=== PATIENT | male | born 1945 | race Caucasian/White ===

== ENCOUNTER 2019-10-03 12:44 | Inpatient (IN) | payer MEDICARE, OTHER ==
[~2019-10-03] VITALS: Ht 172.7 cm; Wt 62.6 kg
[2019-10-03] VITALS (13 sets, daily range): BP systolic 150–192; BP diastolic 54–98; BMI 22.0
--- NOTE | ~2019-10-03 | HEMODYNAMI ---
PATIENT:MINOO ORTIZ MEDICAL RECORD: [id number] : 49 LOCATION:[facility] ADMISSION DATE: 10/03/19 Generatedon:10/06/201916:23 Patient name: MINOO ORTIZ Patient #: [id number] SSN: D OB: 1945 Date of study: 10/06/2019 Page: Of Hemodynamic Procedure Report Patient Data Patient Demographics Procedure consent was obtained First Name: MINOO Gender: Male Last Name: ANGEL : 1945 Patient #: [id number] Age: 73 year(s) Race: Additional ID: [id number] Contact details Address: [address] [place] [address] State: [place] City: [place] Zip code: [address] Past Medical History Allergies: No known allergies Admission Admission Data Admission Date: 10/03/2019 Admission Time: 14:42 Arrival Date: 10/04/2019 Arrival Time: 0:00 Admit Source: Other Insurance Payor: Medicare Room #: D.CV02 [facility] #: [id number] Height (in.): 68 BSA: 1.75 (m2) Height (cm.): 172.72 BMI: 20.98 (kg/m2) Weight (lbs.): 137.99 Weight (kg.): 62.59 Lab Results Lab Result Date: 10/06/2019 Lab Result Time: 0:00 Biochemistry Name Units Result Min Max BUN mg/dl 24 --(----)-* 7 18 Creatinine mg/dl 1.7 --(----)-* 0.6 1.3 eGFR ml/min 42 *-(----)-- 90 120 NONAFRICAN CBC Name Units Result Min Max Hematocrit % 35 *-(----)-- 42 54 Hemoglobin g/dl 11.6 *-(----)-- 13.5 17.5 Procedure Procedure Types Cath Procedure Diagnostic Procedure LHC LHC w/Coronaries Sedation Charges Moderate Sedation up to 15 minutes Peripheral Cath Diagnostic Procedure Flight Controls Engineer Peripheral Procedures AFRO (Diagnostic) Four Vessel Arteriogram Procedure Description Procedure Date Procedure Date: 10/06/2019 Procedure Start Time: 15:57 Procedure End Time: 16:21 Procedure Staff Name Function Jeremias Ding MD Performing Physician Jami Meza RT Monitor Jae Garcia RN Nurse Rosy Ayala RT Scrub Procedure Data Cath Procedure Fluoroscopy Diagnostic fluoroscopy Total fluoroscopy Time: 4.9 time: 4.9 min min Diagnostic fluoroscopy Total fluoroscopy dose: 972 dose: 972 mGy mGy Contrast Material Contrast Material Type Amount (ml) Isovue 300 188 Entry Location Entry Primary Successful Side Size Upsize Upsize Entry Closure Succes sful Closure Location (Fr) 1 (Fr) 2 (Fr) Remarks Device Remarks Femoral Right 5 Fr Exoseal artery Estimated blood loss: 5 ml Diagnostic catheters Device Type Used For End Catheter Placement MULTIPACK JL 4.0 5Fr Left Coronary catheter Angiography MULTIPACK 3DRC 5Fr Procedure catheter MULTIPACK Pigtail 5 Fr LV Angiography catheter Procedure Complications No complications Procedure Medications Medication Administration Route Dosage 0.9% NaCl I.V. 100 ml/hr Oxygen etCO2 Nasal cannula 2 l/min Heparin Flush Bag added to field 2 bags (1000units/500ml NS) Lidocaine 2% added to field 20 Versed I.V. 0.5 mg Fentanyl I.V. 25 mcg Versed I.V. 0.5 mg Fentanyl I.V. 25 mcg Hemodynamics Rest BSA: 1.75 (m2) HGB: 11.6 (g/dl) O2 Consumption: Estimated: 203.42 (ml/min) O2 Co nsumption indexed: Estimated:116.24 (ml/min/m) Heart Rate: 72 (bpm) Snapshots Pre Cath Intra NCS Post Cath Vital Signs Time Heart Resp SPO2 etCO2 NIBP (mmHg) Rhythm Pain Sedation Rate (ipm) (%) (mmHg) Status Level (bpm) 15:47:31 73 15 95 0 159/79(123) NSR 0 (11) 10(A) , No pain 15:51:24 74 16 98 20.1 157/80(120) NSR 0 (11) 10(A) , No pain 15:55:44 75 15 98 20.9 160/84(120) NSR 0 (11) 10(A) , No pain 16:00:11 72 14 97 22.4 162/80(123) NSR 0 (11) 10(A) , No pain 16:04:37 74 14 97 19.4 151/74(114) NSR 0 (11) 9(A) , No pain 16:08:35 73 14 96 16.4 142/71(102) NSR 0 (11) 9(A) , No pain 16:13:05 72 16 99 23.8 151/74(118) NSR 0 (11) 10(A) , No pain Medications Time Medication Route Dose Verified Delivered Reason Notes Eff ectiveness by by 15:53:59 0.9% NaCl I.V. 100 Jae Jae Per ml/hr Jose Garcia physician RN RN 15:54:08 Oxygen etCO2 2 Jae Jae for low 02 Nasal l/min Lorigan Lorigan sats cannula RN RN 15:54:17 Heparin Flush added 2 Jae Jae used for Bag to bags Lorigan Lorigan procedure (1000units/500ml field RN RN NS) 15:54:26 Lidocaine 2% added 20ml Jae Jae for local to vial Lorigan Lorigan anesthetic field RN RN 15:55:23 Versed I.V. 0.5 Jae Jae for mg Lorigan Lorigan sedation RN RN 15:55:30 Fentanyl I.V. 25 Jae Jae for mcg Lorigan Lorigan sedation RN RN 15:59:01 Versed I.V. 0.5 Jae Jae for mg Lorigan Lorigan sedation RN RN 15:59:07 Fentanyl I.V. 25 Jae Jae for mcg Lorigan Lorigan sedation RN crating and moving estimator Log Time Note 15:29:41 Patient Height : 68 inches 15:29:41 Patient Weight : 137.99 lbs 15:30:32 Procedure Status Urgent Heart Cath (IP). 15:30:35 Jami BUNDY(R) (CV) sent for patient. Start room use. 15:30:36 Time tracking: Regular hours (M-F 7:00 - 5:00) 15:30:40 Plan of Care:Hemodynamics will remain stable., Cardiac rhythm will remain stable., Comfort level will be maintained., Respiratory function will remain adequate., Patient/ family verbilizes understanding of procedure., Procedure tolerated without complication., Recovers from procedure without complications.. 15:34:32 Patient allergic to No known allergies 15:38:53 Lab Result : BUN 24 mg/dl 15::53 Lab Result : Creatinine 1.7 mg/dl 15::53 Lab Result : eGFR NONAFRICAN 42 ml/min 15:38:53 Lab Result : Hematocrit 35 % 15:38:53 Lab Result : Hemoglobin 11.6 g/dl 15:42:00 Patient received from CVICU to CCL 2 Alert and oriented. Tansferred to table in Supine position. 15:42:02 Signed procedure consent form obtained from patient. 15:42:03 Warm blankets applied, and krishna hugger turned on for patient comfort. 15:42:04 Correct patient and procedure confirmed by team. 15:43:37 H&P Date Dictated: 10/04/2019 Within 30 days and on chart., ER History on chart.. 15:46:06 ECG and BP/O2 sat monitors applied to patient. 15:46:16 Vital chart was started 15:46:18 Baseline sample Acquired. 15:46:24 Rhythm: sinus rhythm , paced 15:46:25 Full Disclosure recording started 15:46:26 Pre-procedure instructions explained to patient. 15:46:26 Pre-op teaching completed and patient verbalized understanding. 15:46:29 Family in patients room. 15:46:30 Patient NPO since Midnight. 15:46:32 Is the patient allergic to Iodine/contrast media? No. 15:46:47 Is patient on blood thinner?No 15:46:55 Patient diabetic? No. 15:46:57 Previous problem with sedation/anesthesia? No ? 15:46:58 Snore? Yes 15:46:59 Sleep apnea? No 15:47:00 Deviated septum? No 15:47:01 Opens mouth fully? Yes 15:47:02 Sticks out tongue? Yes 15:47:04 Airway obstruction? No ? 15:47:10 Dentures? No ? 15:47:14 Pre procedure: right dorsailis pedis pulse Doppler 15:50:43 Patient pain scale 0/10 ?. 15:51:01 IV patent on arrival in left forearm with 0.9% NaCl at [facility]. 15:51:03 Lab results completed and on chart. 15:52:03 Bilateral groins area was prepped with chlora-prep and draped in sterile fashion 15:52:04 Alarms reviewed by R. N. 15:52:04 Sharps counted by scrub and verified by R.N. 15:52:18 Use device set Femoral Dx 15:52:19 ACIST Syringe (04762) opened to sterile field. 15:52:19 Bag Decanter (2002S) opened to sterile field. 15:52:21 ACIST Hand Control (29373) opened to sterile field. 15:52:21 ACIST Manifold (66330) opened to sterile field. 15:52:22 Tegaderm 4 x 4 (1626W) opened to sterile field. 15:52:23 Medline Cath Pack ([id number]) opened to sterile field. 15:52:24 DIAGNOSTIC Multipack 5Fr catheter set ([id number]) opened to sterile field. 15:52:25 SHEATH 5FR [place] (HIK458) opened to sterile field. 15:52:26 EMERALD Guide Wire (590-027) opened to sterile field. 15:53:59 0.9% NaCl 100 ml/hr I.V. was administered by Jae Garcia RN; Per physician; Verbal order read back and verified. 15:54:08 Oxygen 2 l/min etCO2 Nasal cannula was administered by Jae Garcia RN; for low 02 sats; Verbal order read back and verified. 15:54:17 Heparin Flush Bag (1000units/500ml NS) 2 bags added to field was administered by Jae Garcia RN; used for procedure; Verbal order read back and verified. 15:54:26 Lidocaine 2% 20ml vial added to field was administered by Jae Garcia RN; for local anesthetic; Verbal order read back and verified. 15:54:33 Physician arrived 15:54:34 --------ALL STOP TIME OUT------ 15:54:34 Final Timeout: patient, procedure, and site verified with staff and physician. All members of the team are in agreement. 15:54:38 Right groin site verified by team. 15:54:43 Fire Safety Assessment: A--An alcohol-based skin anteseptic being used preoperatively., C--Open oxygen or nitrous oxide is being used., D--An ESU, laser, or fiber-optic light is being used. 15:54:48 Physical assessment completed. ASA score P 2 - A patient with mild systemic disease as per Jeremias Ding MD. 15:54:54 3b) 30-44 Moderately reduced kidney function. 15:54:59 Maximum allowable contrast dose (3.7 X eGFR X 0.75)116 ml. 15:55:05 Sedation plan: IV Moderate Sedation Medication:Versed, Fentanyl 15:55:23 Versed 0.5 mg I.V. was administered by Jae Garcia RN; for sedation; Verbal order read back and verified. 15:55:30 Fentanyl 25 mcg I.V. was administered by Jae Garcia RN; for sedation; Verbal order read back and verified. 15:56:30 Procedure started. 15:57:30 Local anesthetic to right femoral artery with Lidocaine 2% by Jeremias Ding MD.INITIAL ACCESS ONLY 15:57:47 A 5 Fr sheath was inserted into the Right Femoral artery 15:57:56 A MULTIPACK JL 4.0 5Fr catheter was advanced over the wire and used for Left Coronary Angiography. 15:58:24 LCA angiography performed. 15:58:32 Injector settings: Ml/sec: 3, Volume: 6, 15:59:01 Versed 0.5 mg I.V. was administered by Jae Garcia RN; for sedation; Verbal order read back and verified. 15:59:07 Fentanyl 25 mcg I.V. was administered by Jae Garcia RN; for sedation; Verbal order read back and verified. 16:00:37 Catheter removed. 16:00:40 Zero performed for pressure channel P1 16:00:56 A MULTIPACK 3DRC 5Fr catheter was advanced over the wire and used for Procedure. 16:01:35 RCA angiography performed. 16:01:40 Injector settings: Ml/sec: 3, Volume: 6, 16:04:36 Right carotid angiography performed @3 for6. 16:05:52 Left carotid angiography performed @3for6. 16:06:42 Catheter removed. 16:07:43 A MULTIPACK Pigtail 5 Fr catheter was advanced over the wire and used for LV Angiography. 16:08:55 LV gram done using HUERTA 16:09:10 EF : 55 % 16:10:15 Left leg runoff performed@10 for 20. 16:11:31 Right leg runoff performed@10 for 20. 16:11:33 Right leg runoff performed@10 for 20. 16:12:31 Catheter removed. 16:12:35 EXOSEAL 5Fr (EX500) opened to sterile field. 16:14:43 Sheath removed intact; hemostasis achieved with Exoseal to the Right Femoral artery. 16:14:47 Procedure ended.(Physican Out) 16:15:30 Contrast amount:Isovue 300 188ml. 16:15:40 Fluoroscopy time 04.90 minutes. 16:15:46 Flurop Dose total: 972 16:15:46 Fluoroscopy dose: 972 mGy 16:15:58 Dose Area Product 56680 mGy/cm. 16:16:02 Maximum allowable dose exceeded? Yes. 16:16:04 Sharps counted by scrub and verified by R.N. 16:16:11 Post-procedure physical assessment completed. ASA score P 2 - A patient with mild systemic disease as per Jeremias Ding MD. 16:16:14 Post procedure rhythm: unchanged. 16:16:18 Estimated blood loss: 5 ml 16:16:20 Post procedure instruction explained to patient.Patient verbalizes understanding. 16:16:20 Patient needs reinforcement of post procedure teaching. 16:16:51 Vital chart was stopped 16:18:21 Procedure type changed to Cath procedure, Diagnostic procedure, LHC, LHC w/Coronaries, Sedation Charges, Moderate Sedation up to 15 minutes, Peripheral Cath Diagnostic Procedure, Flight Controls Engineer Peripheral Procedures, AFRO (Diagnostic), Four Vessel Arteriogram 16:18:24 Procedure and supply charges have been captured, reviewed, submitted and are correct. 16:20:03 Procedure Complication : No complications 16:20:09 [facility] Findings: mild to moderate CAD (<70%) 16:20:38 4Vessel Findings: surgery consult 16:20:53 AFRO Findings: PVD: MD will discuss options w/ pt 16:20:56 Operative report dictated upon procedure completion. 16:20:57 See physician's report for complete and final results. 16:21:00 Report given to CVICU. 16:21:05 Patient transfered to CVICU with Bed. 16:21:08 Procedure ended. 16:21:08 Full Disclosure recording stopped 16:21:15 End room use (Document Last) Device Usage Item Name Manufacture Quantity Catalog Hospital Part Current Minimal L ot# / Number Charge Number Stock Stock Serial# Code ACIST Acist 1 46566 953767 464204 683723 20 Syringe Medical (61327) Systems Inc Bag Microtek 1 2001S 811931 49736 695149 5 Decanter Medical Inc. () ACIST Hand Acist 1 28347 467375 952285 391731 5 Control Medical (65124) Systems Inc ACIST Acist 1 30796 753214 022055 828310 5 Manifold Medical (29082) Systems Inc Tegaderm 4 3M 1 1626W 314597 832224 635285 5 x 4 (1626W) Medline Medline 1 [id number] 246262 80034 656013 5 Cath Pack ([id number]) DIAGNOSTIC Cardinal 1 II8721 802633 67124 142632 30 Multipack Health 5Fr catheter set ([id number]) SHEATH 5FR Terumo 1 RQQ307 190334 233025 563500 5 [place] (EMT000) EMERALD Cardinal 1 784-678 670134 849621 232670 5 Guide Wire [facility] (502-683) MULTIPACK Cardinal 1 271354 5 JL 4.0 5Fr Health catheter MULTIPACK Cardinal 1 439785 5 3DRC 5Fr Health catheter MULTIPACK Cardinal 1 [id number] 5 Pigtail 5 Health Fr catheter EXOSEAL 5Fr Cardinal 1 EX500 963097 452513 266624 10 (EX500) Health Signature Audit [place] Stage Time Signature Unsigned Intra-Procedure 10/06/2019 Jami 4:21:42 PM Derrick RT(R) (CV) Intra-Procedure 10/06/2019 Jae 4:22:56 PM Jose MENDOZA Intra-Procedure 10/06/2019 Jeremias Bazan 4:23:24 PM Johnathon DYER Signatures Performing Physician : Signature : Jeremias Ding MD Date : Time : Monitor : Jami Signature : Derrick RT Date : Time : Nurse : Jae Lorigan Signature : RN Date : Time : [place] [address] [place] [address]
--- NOTE | ~2019-10-03 | HEMODYNAMI ---
PATIENT:MINOO ORTIZ MEDICAL RECORD: [id number] : 49 LOCATION:[facility] D.2301 ADMISSION DATE: 10/03/19 Generatedon:10/04/201917:00 Patient name: MINOO ORTIZ Patient #: [id number] SSN: D OB: 1945 Date of study: 10/04/2019 Page: Of Hemodynamic Procedure Report Patient Data Patient Demographics Procedure consent was obtained First Name: MINOO Gender: Male Last Name: ANGEL : 1945 Patient #: [id number] Age: 73 year(s) Race: Additional ID: [id number] Contact details Address: [address] [place] [address] State: [place] City: [place] Zip code: [address] Past Medical History Allergies: No known allergies Admission Admission Data Admission Date: 10/03/2019 Admission Time: 14:42 Arrival Date: 10/04/2019 Arrival Time: 0:00 Admit Source: Other Insurance Payor: Medicare Room #: D.2301 [facility] #: [id number] Height (in.): 68 BSA: 1.75 (m2) Height (cm.): 172.72 BMI: 20.98 (kg/m2) Weight (lbs.): 137.99 Weight (kg.): 62.59 Lab Results Lab Result Date: 10/04/2019 Lab Result Time: 0:00 Biochemistry Name Units Result Min Max BUN mg/dl 23 --(----)-* 7 18 CK-MB ng/ml 1.7 --(-*--)-- 0 3.6 Creatinine mg/dl 1.7 --(----)-* 0.6 1.3 eGFR ml/min 42 *-(----)-- 90 120 NONAFRICAN Troponin l ng/ml 0.077 --(----)-* 0 0.06 CBC Name Units Result Min Max Hematocrit % 32.3 *-(----)-- 42 54 Hemoglobin g/dl 10.4 *-(----)-- 13.5 17.5 Procedure Procedure Types Cath Procedure Diagnostic Procedure PPM/ICD PPM Dual Implant Sedation Charges Moderate Sedation up to 15 minutes Procedure Description Procedure Date Procedure Date: 10/04/2019 Procedure Start Time: 16:32 Procedure End Time: 16:55 Procedure Staff Name Function Jeremias Ding MD Performing Physician Panda Ramires MD Assisting physician Ary Fontanez RT Monitor Dixon De Oliveira RN Nurse Estevan Quezada RT Scrub Procedure Data Cath Procedure Fluoroscopy Diagnostic fluoroscopy Total fluoroscopy Time: 1.7 time: 1.7 min min Diagnostic fluoroscopy Total fluoroscopy dose: 37 dose: 37 mGy mGy Estimated blood loss: 10 ml Procedure Complications No complications Procedure Medications Medication Administration Route Dosage Oxygen etCO2 Nasal cannula 2 l/min Ancef (1Gm/50ml NS) I.V.P.B 1 g Ancef Irrigation Topical 1 g (1gm/500ml NS) Lidocaine 1% added to field 20 Versed I.V. 1 mg Fentanyl I.V. 50 mcg Versed I.V. 1 mg Fentanyl I.V. 50 mcg Hemodynamics Rest BSA: 1.75 (m2) HGB: 10.4 (g/dl) O2 Consumption: Estimated: 193.53 (ml/min) O2 Co nsumption indexed: Estimated:110.59 (ml/min/m) Heart Rate: 57 (bpm) Snapshots Pre Cath Intra NCS Post Cath Vital Signs Time Heart Resp SPO2 etCO2 NIBP (mmHg) Rhythm Pain Sedation Rate (ipm) (%) (mmHg) Status Level (bpm) 16:24:39 40 14 98 19.4 197/72(143) 3 0 (11) 10(A) degree , No Heart pain Block 16:29:17 40 20 97 14.9 178/81(136) 3 0 (11) 10(A) degree , No Heart pain Block 16:33:46 46 18 95 19.4 188/84(133) 3 0 (11) 10(A) degree , No Heart pain Block 16:39:09 38 15 94 17.2 184/77(129) 3 0 (11) 9(A) degree , No Heart pain Block 16:43:46 31 15 94 21.6 182/69(128) 3 0 (11) 9(A) degree , No Heart pain Block 16:48:10 68 13 96 21.6 172/83(128) Paced 0 (11) 9(A) , No pain 16:52:32 88 15 97 23.9 168/82(124) Paced 0 (11) 10(A) , No pain Medications Time Medication Route Dose Verified Delivered Reason Notes Effectiv eness by by 16:10:23 Oxygen etCO2 2 Jeremias Marinelliie used for Nasal l/min [facility] Johnathon De Oliveira RN procedure cannula 16:12:33 Ancef I.V.P.B 1 g Jeremias Marinelliie used for (1Gm/50ml St Johnathon De Oliveira RN procedure NS) 16:32:42 Ancef Topical 1 g Jeremias Morleyian used for Irrigation St Johnathon Ramires MD procedure (1gm/500ml NS) 16:32:56 Lidocaine added 20ml Jeremias Mosqueda for local 1% to vial St Johnathon Ramires MD anesthetic field x 2 16:33:05 Versed I.V. 1 mg Jeremias Metcalf for [facility] Johnathon De Oliveira RN sedation 16:33:12 Fentanyl I.V. 50 Jeremias Marinelliie for [facility] Johnathon De Oliveira RN sedation 16:39:43 Versed I.V. 1 mg Jeremias Marinelliie for [facility] Johnathon De Oliveira RN sedation 16:39:46 Fentanyl I.V. 50 Jeremias Marinelliie for [facility] Johnathon De Oliveira RN sedation Procedure Log Time Note 15:44:54 Informed consent obtained and on chart 15:52:40 Procedure Status PPM/ Gen Change/ Lead Revision/ Temp. 15:52:43 Esetvan Quezada RT(R) sent for patient. Start room use. 15:56:16 H&P Date Dictated: 10/03/2019 Within 30 days and on chart.. 15:56:17 Pre-procedure instructions explained to patient. 15:56:18 Pre-op teaching completed and patient verbalized understanding. 15:56:20 Family in waiting room. 15:56:22 Patient NPO since Midnight. 15:56:37 Patient allergic to No known allergies 15:56:43 Alarms reviewed by R. N. 15:56:43 Sharps counted by scrub and verified by R.N. 15:56:46 Patient pain scale 0/10 ?. 15:58:58 Lab Result : CK-MB 1.7 ng/ml 15:58:58 Lab Result : Creatinine 1.7 mg/dl 15::58 Lab Result : BUN 23 mg/dl 15:: Lab Result : Hemoglobin 10.4 g/dl :58 Lab Result : Hematocrit 32.3 % 15:58:58 Lab Result : Troponin l 0.077 ng/ml 15:58:58 Lab Result : eGFR NONAFRICAN 42 ml/min 15:59: Arrival Date: 10/04/2019 12:00:00 AM 15:59:02 Admit Source: Other 15:59:05 Insurance Payor : Medicare 15:59:30 Patient Height : 68 inches 15:59:35 Patient Weight : 137.99 lbs 16:01:11 Lab results completed and on chart. 16:01:16 Stress Test: no; N/A ? 16:01:24 Left chest area was prepped with chlora-prep and draped in sterile fashion 16:01:39 ACC Patient presents with Stable Angina CCS Anginal Class 2--Slight limitation of ordinary activity. 16:01:42 Time tracking: Regular hours (M-F 7:00 - 5:00) 16:01:49 Plan of Care:Hemodynamics will remain stable., Cardiac rhythm will remain stable., Comfort level will be maintained., Respiratory function will remain adequate., Patient/ family verbilizes understanding of procedure., Procedure tolerated without complication., Recovers from procedure without complications.. 16:04:11 Patient received from ICU to [facility] 1 Alert and oriented. Tansferred to table in Supine position. 16:04:13 Warm blankets applied, and krishna hugger turned on for patient comfort. 16:04:14 Correct patient and procedure confirmed by team. 16:04:15 ECG and BP/O2 sat monitors applied to patient. 16:04:21 Is the patient allergic to Iodine/contrast media? No. 16:04:23 Was the patient premedicated? N/A 16:10:23 Oxygen 2 l/min etCO2 Nasal cannula was administered by Dixon De Oliveira RN; used for procedure; Verbal order read back and verified. 16:12:33 Ancef (1Gm/50ml NS) 1 g I.V.P.B was administered by Dixon De Oliveira RN; used for procedure; Verbal order read back and verified. 16:20:53 Is patient on blood thinner?Yes 16:20:56 ACC The patient was administered the following blood thiners within the last 24 hours: ACCPlavix 16::59 Patient diabetic? No. 16:21:00 If diabetic: On Metformin? N/A 16:21:02 ----Pre-sedation anethsthesia assessment.---- 16:21:04 Previous problem with sedation/anesthesia? No ? 16:21:05 Snore? Yes 16:21:07 Sleep apnea? Unknown 16:21:08 Deviated septum? No 16:21:10 Opens mouth fully? Yes 16:21:11 Sticks out tongue? Yes 16:21:13 Airway obstruction? No ? 16:21:16 Dentures? Yes IN TIGHT 16:21:21 Pre procedure: right dorsailis pedis pulse 2+ Normal; easily identifiable; not easily obliterated 16:21:51 IV patent on arrival in left antecubital with 0.9% NaCl at [facility]. 16::59 Full Disclosure recording started 16::59 Vital chart was started 16:22:06 Rhythm: sinus bradycardia, 2nd degree heart block 16:22:09 Baseline sample Acquired. 16:23:55 Use device set TOI PPM 16:23:57 2-0 Ticron Multipack ([id number]) opened to sterile field. 16:23:58 3-0 Vicryl Single Pack [id number] opened to sterile field. 16:23:59 5-0 Monocryl PS2 [id number] opened to sterile field. 16:23:59 Cautery Tip Superintendent Terminal opened to sterile field. 16:24:00 Cautery Pushbutton Pencil opened to sterile field. 16:24:00 Mepilex Dressing (075715) opened to sterile field. 16:24:12 Immobilizer Large opened to sterile field. 16::09 --------ALL STOP TIME OUT------ 16:: Final Timeout: patient, procedure, and site verified with staff and physician. All members of the team are in agreement. 16:26:19 Left chest site verified by team. 16::23 Fire Safety Assessment: A--An alcohol-based skin anteseptic being used preoperatively., C--Open oxygen or nitrous oxide is being used., D--An ESU, laser, or fiber-optic light is being used. 16:26:29 Physical assessment completed. ASA score P 2 - A patient with mild systemic disease as per Jeremias Ding MD. 16:26:35 Sedation plan: IV Moderate Sedation Medication:Versed, Fentanyl 16:32:00 Procedure started. 16:32:19 Grounding pad site Left thigh. 16:32:21 Grounding pad site free from injury. 16:32:31 Medtronic tax compliance representative LESLY VELA present for procedure. 16:32:42 Ancef Irrigation (1gm/500ml NS) 1 g Topical was administered by Panda Ramires MD; used for procedure; Verbal order read back and verified. 16:32:42 Pre sharps counted by scrub and verified by RN: Sutures: 7; Sponges: 5; Stick needles: 2; Skin needles: 2; Blade: 1; Cautery: 1 16:32:48 Lidocaine 1% was administered to left subclavicular area by Panda Ramires MD . 16:32:56 Lidocaine 1% 20ml vial x 2 added to field was administered by Panda Ramires MD; for local anesthetic; Verbal order read back and verified. 16:33:05 Versed 1 mg I.V. was administered by Dixon De Oliveira RN; for sedation; Verbal order read back and verified. 16:33:12 Fentanyl 50 mcg I.V. was administered by Dixon De Oliveira RN; for sedation; Verbal order read back and verified. 16:33:36 Incision made to left subclavicular area. 16:35:23 Generator pocket made/opened. 16:35:30 Medtronic 4574-45 PPM Lead opened to sterile field. 16:35:30 Medtronic 4074-52 PPM Lead opened to sterile field. 16:35:41 Right subclavian vein accessed with 7Fr Peel Away Sheath. 16:35:44 Left subclavian vein accessed with 7Fr Peel Away Sheath. 16:36:37 Ventricular lead inserted and advanced. 16:36:40 Atrial lead inserted and advanced. 16:39:43 Versed 1 mg I.V. was administered by Dixon De Oliveira RN; for sedation; Verbal order read back and verified. 16:39:46 Fentanyl 50 mcg I.V. was administered by Buffie De Oliveira RN; for sedation; Verbal order read back and verified. 16:40:03 Ventricular lead positioned. 16:40:12 Ventricular lead tested. 16:40:52 Atrial lead positioned. 16:41:41 Atrial lead tested. 16:42:56 Peel-a-way sheath was split and removed. 16:43:03 Peel-a-way sheath was split and removed. 16:44:19 Ventricular lead attachment was completed with 2-0 ticron. 16:45:29 Atrial lead attachment was completed with 2-0 ticron. 16:45:59 MedAntidota MRI PPM Dual Generator [id number] opened to sterile field. 16:49:06 PPM Dual was attached to lead(s) and inserted into pocket. 16:49:29 Generator was sutured in place with 2-0 ticron. 16:49:35 Device pocket was irrigated with Ancef. 16:51:00 Subcutaneous closure was completed with 3-0 vicryl. 16:51:12 Skin closure was completed with 5-0 monocryl. 16:52:03 Lt Chest incision was dressed with 4 x 4 and Tegaderm. 16:52:10 Procedure ended.(Physican Out) 16:52:47 Fluoroscopy time 01.70 minutes. 16:52:52 Fluoroscopy dose: 37 mGy 16:52:52 Flurop Dose total: 37 16:53:00 Dose Area Product 3382 mGy/cm. 16:53:58 Sharps counted by scrub and verified by R.N. 16:54:34 Post-procedure physical assessment completed. ASA score P 2 - A patient with mild systemic disease as per Jeremias Ding MD. 16:54:39 Post procedure rhythm: sinus rhythm 16:54:41 Estimated blood loss: 10 ml 16:54:43 Post procedure instruction explained to patient.Patient verbalizes understanding. 16:54:43 Patient needs reinforcement of post procedure teaching. 16:55:13 Procedure type changed to Cath procedure, Diagnostic procedure, PPM/ICD, PPM Dual Implant, Sedation Charges, Moderate Sedation up to 15 minutes 16:55:30 Procedure and supply charges have been captured, reviewed, submitted and are correct. 16:55:35 Procedure Complication : No complications 16:55:38 Vital chart was stopped 16:55:41 Operative report dictated upon procedure completion. 16:55:42 See physician's report for complete and final results. 16:55:50 Report given to CVICU. 16:55:56 Patient transfered to CVICU with Bed. 16:55:59 Procedure ended. 16:55:59 Full Disclosure recording stopped 16:56:06 ACC-PCI Only Patient was given prescriptions, or instructed by Jeremias Ding MD to start/continue the following medications upon discharge: Plavix 16:59:25 End room use (Document Last) 16:59:44 End room use (Document Last) 16:59:58 End room use (Document Last) Device Usage Item Name Manufacture Quantity Catalog Hospital Part Current Minimal Lot# / Number Charge Number Stock Stock Serial# Code 2-0 Ticron Ethicon 6 [id number] 916746 51200 905824 5 Multipack ([id number]) 3-0 Vicryl Ethicon 1 [id number] 102033 302167 997731 5 Single Pack [id number] 5-0 Monocryl Ethicon 1 Y495G 904778 016637 405611 5 PS2 Y495G Cautery Tip Microtek 1 [id number] 984599 790730 058608 5 [employer] Cautery Microtek 1 [id number] 324136 07765 290208 5 Push[employer] Pencil Mepilex Cardinal 1 639193 063977 975937 519486 5 [facility] ([id number]) Immobilizer Cardinal 1 [id number] 919438 148154 061593 5 Large Health Medtronic Medtronic 1 4574-45 604217 938020 784739 5 4574-45 PPM [id number] Lead EXP: 09/16/2020 Medtronic Medtronic 1 4074-52 342606 020661 480990 5 4074-52 PPM [id number] Lead EXP: 12/25/2019 Medtronic Medtronic 1 [id number] 069940 036648 447530 5 Advisa MRI [id number] PPM Dual EXP: Generator 01/29/2021 [id number] Signature Audit [place] Stage Time Signature Unsigned Intra-Procedure 10/04/2019 Ary Fontanez 4:59:44 PM RT(R) Intra-Procedure 10/04/2019 Dixon De Oliveira RN 4:59:58 PM Intra-Procedure 10/04/2019 Jeremias Keller:00:33 PM Johnathon D[facility] [address] [place] [address]
[2019-10-03] MEDS ORDERED: PLAVIX75 MG PO (13:07)
[2019-10-03] MEDS ORDERED: NORVASC10 MG PO (13:07)
[2019-10-03] MEDS ORDERED: K-DUR20 MEQ PO (13:08)
[2019-10-03] MEDS ORDERED: HYDROCHLOROTHIA50 MG PO (13:08)
[2019-10-03] MEDS ORDERED: BAYER CHEWABLE81 MG PO (13:08)
[2019-10-03] MEDS ORDERED: PRAVACHOL40 MG PO (13:08)
[2019-10-03 13:51] LABS: BASOPHILS 0.4 % (0-2); EOSINOPHILS 0.6 % (0-7); HEMOGLOBIN 11.1 g/dL (13.5-17.5); IMMATURE GRANULOCYTES 0.3 % (0-5); LYMPHOCYTES 13.4 % (15-50); MCH 25.1 pg (26.0-34.0); MCHC 31.7 g/dL (31.0-37.0); MEAN PLATELET VOLUME 8.8 fL (7.4-10.4); MONOCYTES 8.5 % (2-11); NEUTROPHILS 76.8 % (40-80); PLATELET COUNT 348 10x3/uL (130-400); RBC 4.43 10x6/uL (4.20-6.10); RDW 19.4 % (11.5-14.5)
[2019-10-03 13:56] LABS: CALC OSMOLALITY 275 mosm/kg (275-300); CALCIUM 8.2 mg/dL (8.5-10.1); CARBON DIOXIDE 23.7 mmol/L (21.0-32.0); CHLORIDE - SERUM 102 mmol/L (98-107); CREATININE - SERUM 1.7 mg/dL (0.6-1.3); GLUCOSE 103 mg/dL (74-106); POTASSIUM - SERUM 4.2 mmol/L (3.5-5.1); SODIUM 136 mmol/L (136-145); UREA NITROGEN 23 mg/dL (7-18); eGFR NON AFRICAN AMERICAN 42 mL/min (90-120)
[2019-10-03 13:58] LABS: APTT 31.4 SECONDS (22.8-39.4); INR 1.02 (0.85-1.17); PROTIME 13.3 SECONDS (11.6-15.0)
[2019-10-03 14:10] LABS: ALBUMIN 2.4 g/dL (3.4-5.0); ALKALINE PHOSPHATASE 85 U/L (30-120); ALT (SGPT) 20 U/L (10-68); BILIRUBIN - TOTAL 0.45 mg/dL (0.2-1.3); CKMB 1.9 U/L (0.0-3.6); CREATINE KINASE 89 UL (21-232); MAGNESIUM - SERUM 2.2 mg/dL (1.8-2.4); TROPONIN-I 0.037 ng/mL (0.000-0.060)
--- NOTE | 2019-10-03 16:26 | NUR ---
JONATHAN HAMMOND APRN WITH CARIOLOGY NOTIFIED OF BP 192/54 AT THIS TIME. NEW ORDER RECEIVED FOR HYDRALIZINE 50 MG PO TID PRN SBP >170. VORB.
--- NOTE | 2019-10-03 17:19 | NUR ---
PT ARRIVED IN THE UNIT. PT HOOKED TO ICU MONITOS. PT NOTED TO BE IN A COMPLET HEART BLOCK RATE 38. BP STABLE. PT HAS NO COMPLAINTS/NEEDS AT THIS TIME. CALL LIGHT IN REACH. WILL CONT POC.
--- NOTE | 2019-10-03 19:30 | NUR ---
REPORT RECIEVED, SHIFT ASSESSMENT COMPLETE, PT IS ALERT AND ORIENTED, ON RA WITH 97% O2 SAT. ALL PPP, VSS, CALL LIGHT IN REACH
[2019-10-03 19:44] LABS: CKMB 1.6 U/L (0.0-3.6); CREATINE KINASE 69 UL (21-232); TROPONIN-I 0.048 ng/mL (0.000-0.060)
[2019-10-04] VITALS (23 sets, daily range): BP systolic 149–187; BP diastolic 45–88; Ht 172.7 cm; Wt 62.6 kg
[2019-10-04 02:14] LABS: BASOPHILS 0.4 % (0-2); EOSINOPHILS 1.6 % (0-7); HEMATOCRIT 32.3 % (42.0-54.0); HEMOGLOBIN 10.4 g/dL (13.5-17.5); IMMATURE GRANULOCYTES 0.3 % (0-5); LYMPHOCYTES 10.7 % (15-50); MCH 25.3 pg (26.0-34.0); MCHC 32.2 g/dL (31.0-37.0); MCV 78.6 fL (80.0-100.0); MEAN PLATELET VOLUME 8.7 fL (7.4-10.4); MONOCYTES 10.2 % (2-11); NEUTROPHILS 76.8 % (40-80); PLATELET COUNT 343 10x3/uL (130-400); RBC 4.11 10x6/uL (4.20-6.10); RDW 19.6 % (11.5-14.5); WBC 12.5 10x3/uL (4.8-10.8)
[2019-10-04 02:40] LABS: ALBUMIN 2.1 g/dL (3.4-5.0); ALKALINE PHOSPHATASE 76 U/L (30-120); ALT (SGPT) 16 U/L (10-68); BILIRUBIN - TOTAL 0.37 mg/dL (0.2-1.3); CALC OSMOLALITY 276 mosm/kg (275-300); CALCIUM 7.9 mg/dL (8.5-10.1); CARBON DIOXIDE 18.4 mmol/L (21.0-32.0); CHLORIDE - SERUM 103 mmol/L (98-107); CKMB 1.4 U/L (0.0-3.6); CREATINE KINASE 65 UL (21-232); CREATININE - SERUM 1.7 mg/dL (0.6-1.3); GLUCOSE 76 mg/dL (74-106); POTASSIUM - SERUM 3.6 mmol/L (3.5-5.1); PROTEIN - SERUM 5.5 g/dL (6.4-8.2); SODIUM 137 mmol/L (136-145); TROPONIN-I 0.058 ng/mL (0.000-0.060); UREA NITROGEN 23 mg/dL (7-18); eGFR NON AFRICAN AMERICAN 42 mL/min (90-120)
--- NOTE | 2019-10-04 07:00 | NUR ---
REPORT RECEVIED. SEE FLOW SHEET.
--- NOTE | 2019-10-04 08:28 | NUR ---
DR JACKSON AT THE PTS BEDSIDE GOING OVER THE PROCEDURE WITH THE PATIENT. PT CONSENTED TO PPM PLACEMENT. DR JACKSON OK FOR THE PATIENT TO EAT BREAKFAST. [employer] PROVIDED. PLAN FOR PPM AROUND [phone].
--- NOTE | 2019-10-04 08:32 | NUR ---
CONSENT FOR BLOOD, PPM AND ANESTESIA SIGNED AND PLACED IN THE CHART.
[2019-10-04 08:49] LABS: APTT 34.3 SECONDS (22.8-39.4); INR 0.99 (0.85-1.17); PROTIME 13.1 SECONDS (11.6-15.0)
[2019-10-04 09:16] LABS: CKMB 1.7 U/L (0.0-3.6); CREATINE KINASE 63 UL (21-232)
[2019-10-04 09:26] LABS: TROPONIN-I 0.077 ng/mL (0.000-0.060)
--- NOTE | 2019-10-04 14:00 | NUR ---
PT CLIPPED AND PREPPED FOR PPM PLACEMENT.
--- NOTE | 2019-10-04 16:01 | NUR ---
PT LEFT FOR PPM PLACEMENT. GOT THE TO WALK UP WITH THE PT.
--- NOTE | 2019-10-04 17:30 | NUR ---
PT BACK IN THE ROOM AND HOOKED TO ICU MONITORS. PACING AT 70. VSS. LEFT UPPER ARM IN A SLING. DRESSING NOTED TO LEFT UPPER CHEST. PT DENIES PAIN AT THIS TIME. CALL LIGHT IN REACH. WILLC ONT POC.
--- NOTE | 2019-10-04 19:31 | NUR ---
PT TRANSFERED TO [facility] WITH ALL BELONINGS.
--- NOTE | 2019-10-04 19:32 | NUR ---
PT RECEIVED TO UNIT AT 1930 VIA WHEELCHAIR WITH ICU NURSE. AMBULATED WITH STANDBY ASSIST TO BED. PLACED ON MONITOR. CALL LIGHT IN REACH. WATER GIVEN. WILL CONTINUE TO OBSERVE.
[2019-10-05] VITALS (24 sets, daily range): BP systolic 145–180; BP diastolic 54–81
[2019-10-05 04:35] LABS: HEMOGLOBIN 11.6 g/dL (13.5-17.5); MCH 25.9 pg (26.0-34.0); MCHC 33.1 g/dL (31.0-37.0); MCV 78.1 fL (80.0-100.0); MEAN PLATELET VOLUME 8.8 fL (7.4-10.4); RBC 4.48 10x6/uL (4.20-6.10); RDW 19.9 % (11.5-14.5); WBC 12.7 10x3/uL (4.8-10.8)
[2019-10-05 05:02] LABS: ANION GAP 17.4 mmol/L (8-16); CALCIUM 8.1 mg/dL (8.5-10.1); CARBON DIOXIDE 19.7 mmol/L (21.0-32.0); CREATININE - SERUM 1.7 mg/dL (0.6-1.3); POTASSIUM - SERUM 3.1 mmol/L (3.5-5.1)
[2019-10-05 05:03] LABS: APTT 34.3 SECONDS (22.8-39.4); INR 1.05 (0.85-1.17); PROTIME 13.6 SECONDS (11.6-15.0)
--- NOTE | 2019-10-05 08:04 | NUR ---
AWAKE AND ALERT SKIN WARM AND DRY. DENIES PAIN. LEFT ARM IN SLING, DRESSING LEFT SHOULDER DRY AND INTACT. VOIDED 225ML CLEAR RICHIE URINE. HEAD OF BED ELEVATED. RIGHT HAND IV SALINE LOCK WITHOUT REDNESS OR SWELLING. MONITOR PACER RHTHYM . NO DISTRESS. CALLED UPDATE GIVEN. PATIENT ON ROOM AIR. NURSE CALL LIGHT WITHIN HANDS REACH.
--- NOTE | 2019-10-05 10:03 | NUR ---
Nutrition Follow-up: POD 1 PPM placement. Reports fair appetite. Diet: Cardiac Wt: 138# (10/03) Last BM: 10/01 or 10/02 Labs noted: Ca 8.1, K+ 3.1 Meds noted: KDur, NS @ 75, electrolyte protocol -Encourage PO intake and honor food preferences within diet restrictions. -Monitor wt. -RD following.
--- NOTE | 2019-10-05 11:15 | NUR ---
APRRESOLINE GIVEN BLOOD PRESSURE 171/72
--- NOTE | 2019-10-05 14:32 | NUR ---
hibclens bath given up in chair at bedside. tolerated well. fair gait. left arm in sling. ns infusing right hand at 75 ml hour no redness or swelling at site. voided 175 ml of clear bradley urine. at bedside.
--- NOTE | 2019-10-05 17:48 | NUR ---
AMBULATE TO BED. TOLERATED WELL. DENIES PAIN. NO DISTRESS. LEFT SHOULDER DRESSING DRY AND INTACT. IV PATENT RIGHT HAND.
--- NOTE | 2019-10-05 17:50 | NUR ---
CONSENTS FOR HEART CATH AND BLOOD CONSENT SIGNED AND PLACED ON CHART.
[2019-10-05 18:18] LABS: CHOL - HDL RATIO 3.4 ratio (2.3-4.9); LDL-HDL RATIO 2.1 ratio (1.5-3.5)
--- NOTE | 2019-10-05 18:45 | NUR ---
APRESOLINE GIVEN FOR BLOOD PRESSURE 187/90
[2019-10-06] VITALS (24 sets, daily range): BP systolic 138–180; BP diastolic 48–79
--- NOTE | 2019-10-06 00:45 | NUR ---
SYSTOLIC B/P >170 PRN HYDRALAZINE GIVEN PER APR.
[2019-10-06 04:08] LABS: BASOPHILS 0.2 % (0-2); EOSINOPHILS 0.9 % (0-7); HEMATOCRIT 32.7 % (42.0-54.0); HEMOGLOBIN 10.5 g/dL (13.5-17.5); IMMATURE GRANULOCYTES 0.4 % (0-5); LYMPHOCYTES 7.1 % (15-50); MCH 25.3 pg (26.0-34.0); MCHC 32.1 g/dL (31.0-37.0); MCV 78.8 fL (80.0-100.0); MEAN PLATELET VOLUME 8.5 fL (7.4-10.4); MONOCYTES 9.9 % (2-11); NEUTROPHILS 81.5 % (40-80); PLATELET COUNT 349 10x3/uL (130-400); RBC 4.15 10x6/uL (4.20-6.10); RDW 20.1 % (11.5-14.5); WBC 12.5 10x3/uL (4.8-10.8)
[2019-10-06 04:42] LABS: ANION GAP 17.1 mmol/L (8-16); CREATININE - SERUM 1.6 mg/dL (0.6-1.3); POTASSIUM - SERUM 4.1 mmol/L (3.5-5.1); TROPONIN-I 1.649 ng/mL (0.000-0.060)
--- NOTE | 2019-10-06 07:00 | NUR ---
am meds given for blood pressure. patient awake and alert skin warm and dry, denies pain. left should pacermaker dressing dry and intactiv righthand without redness or swelling infusing with ns at 75 ml hour. voided in urinal 125 ml of clear yellow urine. head of bed elevated 30 degrees. pedal pulses double chected with doppler and marked.
--- NOTE | 2019-10-06 09:50 | NUR ---
here update given
--- NOTE | 2019-10-06 10:12 | NUR ---
apresoline given for bp 161/64
--- NOTE | 2019-10-06 15:00 | NUR ---
PATIENT WANTING TO LEAVE. STATES HE IS NEEDING A CIGARETTE. ATIVAN 0.5MG IV GIVEN
--- NOTE | 2019-10-06 15:23 | NUR ---
PREOP GIVEN FOR BURIAL VAULT DELIVERER AND INSTALLER
--- NOTE | 2019-10-06 16:36 | NUR ---
RETURNED TO ROOM FROM EQUIPMENT MECHANIC SPECIALIST. RIGHT GROIN DRESSING DRY AND INTACT NO BRUISING OR SWELLING NOTED. PEDLA PULSES PALABLE. PATIENT AWAKES EASILY SKIN WARM AND DRY . DENIES PAIN. MONITOR PACER RHYTHM. AT BEDSIDE. DR. NIETO TALKED WITH .
[2019-10-06] MEDS ORDERED: HYDRALAZINE HCL25 MG PO (16:40)
[2019-10-06] MEDS ORDERED: TOPROL XL50 MG PO (16:40)
--- NOTE | 2019-10-06 17:00 | NUR ---
NO CHANGES. RIGHT GROIN DRESSING DRY AND INTACT. PEDAL PULSES PALABLE. STILL SLEEPY. BED FLAT. DR HO CALLED. STATES CAN DISCHARGE IN 2 HOURS PER POST CATH PROTOCAL. MEDS CALLED INTO [facility]. APPOINTMENT MADE FOR September AT 1030 AM NOTIFIED OF NEW ORDERS AND MD APPOINTMENT.
--- NOTE | 2019-10-06 18:06 | NUR ---
PO MEDS TAKEN BY PATIENT WITHOUT DIFFICULTY. RIGHT GROIN DRESSING DRY AND INTACT NO SWELLING NOTED. NO BRUISING. PEDAL PULSES PALABLE.
--- NOTE | 2019-10-06 18:41 | MORECARE ---
CASE MANAGEMENT DISCHARGE SUMMARY PATIENT: MINOO ORTIZ UNIT: [id number] ADM DATE: 10/03/19 AGE: 73 : [birth year] SEX: M [facility] AUTHOR: ROBI KNUTSON PHYSICIAN: REFERRING PHYSICIAN: NAHOMI HO MD DATE OF SERVICE: 10/06/19 Discharge Plan Patient Name: MINOO ORTIZ [facility] [facility] 1945 Planned Disposition: Home Anticipated Discharge Date: Discharge Date: Expected LOS: Initial Reviewer: [email or web address] Initial Review Date: 10/03/2019 Generated: 10/06/19 7:41 pm DCPIA - Discharge Planning Initial Assessment Updated by [email or web address]: Eboni Renee on 10/06/19 6:40 pm * Is the patient Alert and Oriented? Yes * How many steps to enter\exit or inside your home? * PCP [place] * [facility] * Preadmission Environment Home with Family * ADLs Independent * Equipment None * List name and contact numbers for known caregivers / representatives who currently or will assist patient after discharge: CAITLIN ORTIZ - [facility] - [phone] * Verbal permission to speak to the caregivers and representatives has been obtained from the patient. No * Community resources currently utilized None * Additional services required to return to the preadmission environment? No * Can the patient safely return to the preadmission environment? Yes * Has this patient been hospitalized within the prior 30 days at any hospital? No Patient Name: MINOO ORTIZ Page [id number] at 1841 All edits/amendments must be made on the electronic document DICTATION DATE: 10/06/191840 SENIOR HARDWARE DESIGN ENGINEER: KELSEY 10/06/191840 RPT#: [id number] DC DATE: STATUS: ADM IN [facility] [address] [place] [address] END OF REPORT
--- NOTE | 2019-10-06 18:45 | NUR ---
DISCHARGE INSTRUCTIONS DISCUSS WITH PATEINT AND , COPY OF DISCHARGE INSTRUCTIONS PROVIDED. PATIENT ABLE TO REPEAT DISCHARGE INTRUCTIONS BACK TO NURSE.
--- NOTE | 2019-10-06 18:49 | MORECARE ---
CASE MANAGEMENT DISCHARGE SUMMARY PATIENT: MINOO ORTIZ UNIT: [id number] ADM DATE: 10/03/19 AGE: 73 : 47 SEX: M ROOM/BED: D[facility] AUTHOR: EAMON,DOC PHYSICIAN: REFERRING PHYSICIAN: NAHOMI HO MD DATE OF SERVICE: 10/06/19 Discharge Plan Patient Name: MINOO ORTIZ Facility: [facility]:[place] : 1945 Planned Disposition: Home Anticipated Discharge Date: Discharge Date: Expected LOS: Initial Reviewer: [email or web address] Initial Review Date: 10/03/2019 Generated: 10/06/19 7:48 pm Comments DCP- Discharge Planning Updated by [email or web address]: Eboni Renee on 10/06/19 5:[address] Patient Name: MINOO ORTIZ Admission Status: ER Accout number: [id number] Admission Date: 10-03-2019 : 1945 Admission Diagnosis:BRADYCARDIA, UNSPECIFIED Attending: NAHOMI HO Current LOS: 3 Anticipated DC Date: Planned Disposition: Home Primary Insurance: MEDICARE A & B Discharge Planning Comments: CM met with patient to complete initial dc planning assessment. CM educated patient on the CM role and verbal consent given by patient to complete assessment. Patient lives at home with family. Patient is independent. At discharge patient plans to return home and feels this is a safe discharge. CM discussed availability of home health, rehab services, and medical equipment. Patient will have family to transport home. Patient denied known discharge needs at this time. CM will continue to follow and will assist as needed with dc plans/needs. D/C IMM SIGNED Catering Truck Operator: Eboni Renee DCPIA - Discharge Planning Initial Assessment Updated by [email or web address]: Eboni Renee on 10/06/19 6:40 pm * Is the patient Alert and Oriented? Yes * How many steps to enter\exit or inside your home? * PCP [place] * Pharmacy [facility] * Preadmission Environment Home with Family * ADLs Independent * Equipment None * List name and contact numbers for known caregivers / representatives who currently or will assist patient after discharge: CAITLIN ORTIZ - [facility] - [phone] * Verbal permission to speak to the caregivers and representatives has been obtained from the patient. No * Community resources currently utilized None * Additional services required to return to the preadmission environment? No * Can the patient safely return to the preadmission environment? Yes * Has this patient been hospitalized within the prior 30 days at any hospital? No Coverage Notice Reviewer: [email or web address] Milana Renee Notice Issued Date-Time: 10/06/2019 17:30 Notice Type: IM Discharge Notice Notice Delivered To: Family Member Relationship to Patient: Spouse Fish Hatchery Superintendent Name: CAITLIN ORTIZ Delivery Method: HAND - Hand Delivered Caitlin Days: Prior Verbal Notification: Recipient Understood Notice: Yes Recipient Signature: Yes Med Rec Note Co-signed by Attending: Coverage Notice Comment: Last DP export: 10/06/19 5:41 p Patient Name: MINOO ORTIZ Page [id number] at 1849 All edits/amendments must be made on the electronic document DICTATION DATE: 10/06/191847 LEAD PORTFOLIO MANAGER: KELSEY 10/06/191847 RPT#: [id number] DC DATE: STATUS: ADM IN [facility] [address] [place] [address] END OF REPORT
--- NOTE | 2019-10-06 19:16 | NUR ---
PATIENT DISCHARGED PER WHEEL CHAIR
--- NOTE | 2019-10-07 08:19 | EC ---
PATIENT:MINOO ORTIZ DATE OF SERVICE: 10/03/19 SEX: M MEDICAL RECORD: [id number] DATE OF : [birth year] LOCATION:[place] [address] AGE OF PATIENT: 73 ADMISSION DATE: 10/03/19 REFERRING PHYSICIAN: INTERPRETING PHYSICIAN: JAYA JACKSON MD ECHOCARDIOGRAM REPORT ECHO CHARGES 4 ECHO COMPLETE Date: 10/04/19 CLINICAL DIAGNOSIS: HEART BLOCK ECHOCARDIOGRAPHIC MEASUREMENTS (adult normal given) AC root (d.<3.7cm) 2.8 cm LV Septum d (<1.2 cm> 0.9 cm Valve Excursion 1.7 cm LV Septum (systole) 1.8 cm Left Atria (s.<4.0cm> 4.0 cm LVPW d(<1.2cm) 0.7 cm RV (d.<2.3cm) 2.8 cm LVPW (sytole) 1.1 cm LV diastole(<5.6CM) 6.5 cm MV E-F(>70mm/sec) cm LV systole 4.2 cm LVOT Diameter 1.8 cm MV exc.(>10mm) cm Est.ejection fraction (50-75%) % DOPPLER: LVIT cm/sec A 134 cm/sec E 114 cm/sec LA cm/sec RVSP 31.8 mmHg LVOT 221 cm/sec AOP1/2T m/s Asc. Ao 260 cm/sec RVOT 108 cm/sec RA cm/sec PA 121 cm/sec AV Gradient Peak 26.9 mmHg AV Mean 11.7 mmHg AV Area 2.8 cm MV Gradient Peak 13.0 mmHg MV Mean 5.1 mmHg MV Area cm COMMENTS: Engraver Pantograph: Jocelyn CRUZ Senior Project Accountant: 3 Dr. Rand TAPE# PACS Pericardial Effusion N DATE OF SERVICE: Adequate 2D, color flow imaging, spectral Doppler, and M-Mode. No LVH. LV internal dimension is normal. Wall motion is normal. EF is greater than or equal to 55%. Aortic valve is mild calcification with elevated gradient consistent with mild/early . Left atrium is normal at 4.0 cm. Mitral valve shows no prolapse. Trace MR. Right-sided chambers are grossly normal. Trace TR. ECHOCARDIOGRAM REPORT [id number] MINOO ORTIZ TRANSINT:[id number] Voice Confirmation ID: [id number] DOCUMENT ID: [id number] JAYA JACKSON MD at 0819 CC: [id number] DICTATION DATE: 10/04/19 1439 MANAGER LIFE SCIENCES: 10/04/19 2250 DIS IN 10/06/19 [facility] [address] [place] [id number]
--- NOTE | 2019-10-07 08:19 | OP ---
PATIENT NAME: LUIS CARLOS CLANCY MEDICAL RECORD: [id number] :[birth year] LOCATION:[facility] BautistaCV02 ADMISSION DATE:10/03/19 SURGEON: JAYA JACKSON MD DATE OF OPERATION: 10/04/2019 PROCEDURE: Lead portion of permanent pacemaker placement. INDICATION: Complete heart block with sick sinus syndrome. SURGEON: Dr. Ramires. DESCRIPTION OF PROCEDURE: After left subclavian was cannulated via modified Seldinger technique via Dr. Ramires, first under fluoroscopic guidance, the RV lead was placed in the RV apex without difficulty. After adequate R waves and thresholds were obtained, placed the right atrial lead into the right atrial appendage without difficulty. After adequate P waves and thresholds were obtained, the leads were attached to appropriate poles of the generator and pocket was closed via Dr. Ramires. IMPRESSION: Successful lead portion of permanent pacemaker placement of Luis Carlos Clancy. ESTIMATED BLOOD LOSS: Minimal. COMPLICATIONS: None. DISPOSITION: To the floor, stable. TRANSINT:[id number] Voice Confirmation ID: [id number] DOCUMENT ID: [id number] JAYA JACKSON MD at 0819 CC: [id number] DICTATION DATE: 10/04/19 165 TRACER BULLET SECTION SUPERVISOR: 10/05/19 0058 DIS IN 10/06/19 [place] [id number] [place] [address]
--- NOTE | 2019-10-07 08:19 | OP ---
PATIENT NAME: MINOO ORTIZ MEDICAL RECORD: [id number] :47 LOCATION:DSIMONE DShaistaCV02 ADMISSION DATE:10/03/19 SURGEON: JAYA JACKSON MD DATE OF OPERATION: 10/06/2019 PROCEDURE: This is a left heart cath plus 4-vessel arteriography plus aortofemoral runoff. FOUR-VESSEL ARTERIOGRAPHY: Four-vessel arteriography procedure was performed secondary to dizziness and significant disease via carotid Doppler. The right common carotid was selectively engaged and this shows mild wall disease without significant stenosis. The right external carotid shows about 50% stenosis. The right internal carotid does show a 60% to 70% stenosis in its mid portion fairly discrete. Next, the catheter was drawn in the left common carotid was selectively engaged. It shows luminal irregularities. No flow obstructive disease. The left external carotid smooth-walled without significant stenosis. The left internal carotid does show a stenosis approaching 70-80% fairly discrete in its mid portion. PROCEDURE: Left heart cath, selective coronary angiography. Left ventriculography in 30-degree HUERTA view: Normal wall motion and normal systolic function. CORONARY ANATOMY: LEFT MAIN: Free of disease. LAD: Has mild wall disease with no significant stenosis. CIRCUMFLEX: Free of disease. RIGHT CORONARY ARTERY: Right coronary free of disease. The catheter was pulled to the level of the renal arteries and abdominal aorta, femoral runoff was performed. 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 This is somewhat elongated saccular. RIGHT ILIAC SYSTEM. The right common internal and external iliac is free of disease. Right femoral system, right superficial femoral system is totally occluded; however, it does reconstitute nicely distally via collaterals with preserved 3-vessel runoff. Left iliac common internal and external shows similar luminal irregularities with no flow obstructive disease. Left superficial femoral artery shows a diffuse stenosis in the 50% range, but nothing flow restrictive. However, there is severe diffuse disease. Infrapopliteal not amenable to intervention. IMPRESSION: Significant for peripheral vascular disease as described above. However, the right has excellent recollateralization. For medical management of the left only. TRANSINT:[id number] Voice Confirmation ID: [id number] DOCUMENT ID: [id number] OPERATIVE REPORT [id number] MINOO ORTIZ JAYA JACKSON MD at 6849 CC: [id number] DICTATION DATE: 10/06/19 1653 PLATE WORKER: 10/06/192206 DIS IN 10/06/19 [place] [address] [place] [id number]
--- NOTE | 2019-10-07 13:43 | MORECARE ---
CASE MANAGEMENT DISCHARGE SUMMARY PATIENT: MINOO ORTIZ UNIT: [id number] ADM DATE: 10/03/19 AGE: 73 : [birth year] SEX: M ROOM/BED: [facility] AUTHOR: EAMONDOC PHYSICIAN: REFERRING PHYSICIAN: NAHOMI HO MD DATE OF SERVICE: 10/07/19 Discharge Plan Patient Name: MINOO ORTIZ Facility: [facility]:[place] : 1945 Planned Disposition: Home Anticipated Discharge Date: Discharge Date: 10/06/2019 Expected LOS: Initial Reviewer: [email or web address] Initial Review Date: 10/03/2019 Generated: 10/07/19 2:43 pm Comments DCP- Discharge Planning Updated by [email or web address]: Eboni Renee on 10/06/19 5:[address] Patient Name: MINOO ORTIZ Admission Status: ER Accout number: [id number] Admission Date: 10-03-2019 : 1945 Admission Diagnosis:BRADYCARDIA, UNSPECIFIED Attending: NAHOMI HO Current LOS: 3 Anticipated DC Date: Planned Disposition: Home Primary Insurance: MEDICARE A & B Discharge Planning Comments: CM met with patient to complete initial dc planning assessment. CM educated patient on the CM role and verbal consent given by patient to complete assessment. Patient lives at home with family. Patient is independent. At discharge patient plans to return home and feels this is a safe discharge. CM discussed availability of home health, rehab services, and medical equipment. Patient will have family to transport home. Patient denied known discharge needs at this time. CM will continue to follow and will assist as needed with dc plans/needs. D/C IMM SIGNED First Front Ventilator: Eboni Renee DCPIA - Discharge Planning Initial Assessment Updated by [email or web address]: Eboni Renee on 10/06/19 6:40 pm * Is the patient Alert and Oriented? Yes * How many steps to enter\exit or inside your home? * PCP [place] * Pharmacy [facility] * Preadmission Environment Home with Family * ADLs Independent * Equipment None * List name and contact numbers for known caregivers / representatives who currently or will assist patient after discharge: CAITLIN ORTIZ - SPOUSE - [phone] * Verbal permission to speak to the caregivers and representatives has been obtained from the patient. No * Community resources currently utilized None * Additional services required to return to the preadmission environment? No * Can the patient safely return to the preadmission environment? Yes * Has this patient been hospitalized within the prior 30 days at any hospital? No Coverage Notice Reviewer: [id number] Milana Renee Notice Issued Date-Time: 10/06/2019 17:30 Notice Type: IM Discharge Notice Notice Delivered To: Family Member Relationship to Patient: Spouse Mortgage Lender Name: CAITLIN ORTIZ Delivery Method: HAND - Hand Delivered Caitlin Days: Prior Verbal Notification: Recipient Understood Notice: Yes Recipient Signature: Yes Med Rec Note Co-signed by Attending: Coverage Notice Comment: Last DP export: 10/06/19 5:49 p Patient Name: MINOO ORTIZ Page [phone] at 1343 All edits/amendments must be made on the electronic document DICTATION DATE: 10/07/19 1343 PHARMACY RETAIL SUPPORT SPECIALIST: KELSEY 10/07/19 1343 RPT#: [id number] DC DATE:10/06/19 STATUS: DIS IN [facility] [address] [place] [address] END OF REPORT
--- NOTE | 2019-10-13 13:22 | OP ---
PATIENT NAME: MINOO ORTIZ MEDICAL RECORD: [id number] :[birth year] LOCATION:DSTUARTI D.CV02 ADMISSION DATE:10/03/19 SURGEON: PANDA CM MD DATE OF OPERATION: 10/04/2019 PREOPERATIVE DIAGNOSIS: Sick sinus syndrome with complete heart block. POSTOPERATIVE DIAGNOSIS: Sick sinus syndrome with complete heart block. PROCEDURES: 1. Left subclavian vein dual-lead pacemaker placement. 2. Fluoroscopic interpretation. SURGEON: Panda Cm MD CO-SURGEON: Jeremias Rand MD REPORT OF OPERATION: The patient's left chest was prepped and draped in sterile fashion. A transverse incision was made over the left superolateral chest and a subcutaneous pouch was made over the pectoral fascia. A needle was used to cannulate the left subclavian vein and guidewires were advanced with ease. Fluoro was used to note that the wires were in good position in the venous system. The dilator, trocar devices were placed over the wires and the wires and dilators were removed. The leads were advanced until they rested in the superior vena cava. At this point, Dr. Rand positioned the leads appropriately in the atrium and ventricle. Once they were noted to be in good position and functioning appropriately, then they were sutured into place with 2-0 Ti-Crons. The leads were affixed to the pacemaker which was placed into the subcutaneous pouch and sutured to the pectoral fascia with a single interrupted 2-0 Ti-Cron. We irrigated out the wound bed with antibiotic solution. The subcutaneous tissues were reapproximated with interrupted 3-0 Vicryl and the skin was closed with running subcutaneous 5-0 Monocryl. COMPLICATIONS: None. CONDITION: Stable. ANESTHESIA: Local MAC. BLOOD LOSS: Minimal. NTS:[id number] Voice Confirmation ID: [id number] DOCUMENT ID: [id number] PANDA CM MD at 1322 CC: [id number] DICTATION DATE: 10/04/19 1654 PRIMARY CARE PROVIDER: 10/05/19 0106 DIS IN 10/06/19 [place] [address]
== END 2019-10-06 19:17 | disposition home or self-care (01) | DRG 242 ==
LOC: D.ER 12:44 → D.ICU 14:42 → D.CVICU 14:42
PROVIDERS: Family Medicine; Internal Medicine Interventional Cardiology; ADMIT Family Medicine; ATTEND Family Medicine
PROC: 0JH606Z Insertion of Pacemaker, Dual Chamber into Chest Subcutaneous Tissue and Fascia, Open Approach (ICD-10-PCS; principal; 2019-10-03)
PROC: 02HK3JZ Insertion of Pacemaker Lead into Right Ventricle, Percutaneous Approach (ICD-10-PCS; 2019-10-03)
PROC: 02H63JZ Insertion of Pacemaker Lead into Right Atrium, Percutaneous Approach (ICD-10-PCS; 2019-10-03)
PROC: 4A023N7 Measurement of Cardiac Sampling and Pressure, Left Heart, Percutaneous Approach (ICD-10-PCS; 2019-10-06)
PROC: B2111ZZ Fluoroscopy of Multiple Coronary Arteries using Low Osmolar Contrast (ICD-10-PCS; 2019-10-06)
PROC: B41D1ZZ Fluoroscopy of Aorta and Bilateral Lower Extremity Arteries using Low Osmolar Contrast (ICD-10-PCS; 2019-10-06)
PROC: B3151ZZ Fluoroscopy of Bilateral Common Carotid Arteries using Low Osmolar Contrast (ICD-10-PCS; 2019-10-06)
DX: I44.2 Atrioventricular block, complete (principal); I50.33 Acute on chronic diastolic (congestive) heart failure; I11.0 Hypertensive heart disease with heart failure; E78.5 Hyperlipidemia, unspecified; I25.10 Atherosclerotic heart disease of native coronary artery without angina pectoris; I49.5 Sick sinus syndrome; F17.200 Nicotine dependence, unspecified, uncomplicated; I65.23 Occlusion and stenosis of bilateral carotid arteries; I71.4 Abdominal aortic aneurysm, without rupture; R42 Dizziness and giddiness

== ENCOUNTER 2019-11-15 06:03 | Inpatient (IN) | payer MEDICARE, OTHER ==
[~2019-11-15] VITALS: Ht 172.7 cm; Wt 57.4 kg
[~2019-11-15 06:03] MED LIST: BAYER CHEWABLE81 MG PO; HYDRALAZINE HCL25 MG PO; HYDROCHLOROTHIA50 MG PO; K-DUR20 MEQ PO; NORVASC10 MG PO; PLAVIX75 MG PO; PRAVACHOL40 MG PO; TOPROL XL50 MG PO
[2019-11-15 06:38] LABS: BASOPHILS 0.3 % (0-2); EOSINOPHILS 1.8 % (0-7); HEMATOCRIT 36.7 % (42.0-54.0); HEMOGLOBIN 11.5 g/dL (13.5-17.5); IMMATURE GRANULOCYTES 0.3 % (0-5); LYMPHOCYTES 12.1 % (15-50); MCH 26.3 pg (26.0-34.0); MCHC 31.3 g/dL (31.0-37.0); MCV 83.8 fL (80.0-100.0); MONOCYTES 8.7 % (2-11); NEUTROPHILS 76.8 % (40-80); RBC 4.38 10x6/uL (4.20-6.10); RDW 19.9 % (11.5-14.5); WBC 14.4 10x3/uL (4.8-10.8)
[2019-11-15 06:42] LABS: CALC OSMOLALITY 273 mosm/kg (275-300); CALCIUM 8.9 mg/dL (8.5-10.1); CARBON DIOXIDE 24.2 mmol/L (21.0-32.0); CHLORIDE - SERUM 101 mmol/L (98-107); CREATININE - SERUM 1.2 mg/dL (0.6-1.3); POTASSIUM - SERUM 3.3 mmol/L (3.5-5.1); SODIUM 135 mmol/L (136-145); UREA NITROGEN 16 mg/dL (7-18); eGFR NON AFRICAN AMERICAN 63 mL/min (90-120)
[2019-11-15 06:43] LABS: GLUCOSE 145 mg/dL (74-106)
[2019-11-15 06:48] LABS: PLATELET COUNT 449 10x3/uL (130-400)
[2019-11-15 06:49] LABS: INR 0.94 (0.85-1.17); PROTIME 12.5 SECONDS (11.6-15.0)
[2019-11-15 06:50] LABS: APTT 33.2 SECONDS (22.8-39.4)
[2019-11-15 07:02] LABS: ALKALINE PHOSPHATASE 80 U/L (30-120); ALT (SGPT) 17 U/L (10-68); BILIRUBIN - TOTAL 0.36 mg/dL (0.2-1.3); CKMB 3.7 U/L (0.0-3.6); CREATINE KINASE 79 UL (21-232); PRO BNP 8175 pg/mL (0-125)
[2019-11-15 07:16] LABS: TROPONIN-I 0.801 ng/mL (0.000-0.060)
--- NOTE | 2019-11-15 07:45 | NUR ---
PT TAKEN OFF OF BIPAP AND PLACED ONTO 3L O2 VIA NC PER DR COWAN VERBAL ORDER. PT GIVEN UPDATE OF POC AND PT VERBALIZED UNDERSTANDING. PT'S RESPIRATIONS ARE WNL, EVEN AND NONLABORED AT THIS TIME.
[2019-11-15 10:30] VITALS: BP 107/58
[2019-11-15 12:01] LABS: CKMB 25.4 U/L (0.0-3.6); CREATINE KINASE 231 UL (21-232)
[2019-11-15 12:08] LABS: TROPONIN-I 5.348 ng/mL (0.000-0.060)
[2019-11-15 15:47] VITALS: BP 123/74
[2019-11-15 17:04] VITALS: BP 135/68; BMI 21.3
--- NOTE | 2019-11-15 19:30 | NUR ---
PT IN BED, AAO X 3, RESP EVEN AND UNLABORED, NO DISTRESS NOTED, CL IN REACH, SR UP X 2.
[2019-11-15 20:00] VITALS: BP 111/63
[2019-11-15 20:12] LABS: CKMB 19.4 U/L (0.0-3.6)
[2019-11-15 20:16] LABS: CREATINE KINASE 299 UL (21-232); TROPONIN-I 7.835 ng/mL (0.000-0.060)
[2019-11-16] VITALS: BP 126/67
[2019-11-16 07:16] LABS: BASOPHILS 0.1 % (0-2); EOSINOPHILS 0 % (0-7); HEMOGLOBIN 10.1 g/dL (13.5-17.5); IMMATURE GRANULOCYTES 0.2 % (0-5); LYMPHOCYTES 5.5 % (15-50); MCHC 32.6 g/dL (31.0-37.0); MCV 82.9 fL (80.0-100.0); MEAN PLATELET VOLUME 9.2 fL (7.4-10.4); NEUTROPHILS 84.2 % (40-80); RBC 3.74 10x6/uL (4.20-6.10); RDW 19.6 % (11.5-14.5); WBC 12.4 10x3/uL (4.8-10.8)
[2019-11-16 07:19] LABS: PLATELET COUNT 324 10x3/uL (130-400)
[2019-11-16 07:26] LABS: ANION GAP 11.6 mmol/L (8-16); CALCIUM 8.4 mg/dL (8.5-10.1); CARBON DIOXIDE 26.7 mmol/L (21.0-32.0); CREATININE - SERUM 1.5 mg/dL (0.6-1.3); POTASSIUM - SERUM 3.3 mmol/L (3.5-5.1)
--- NOTE | 2019-11-16 08:00 | NUR ---
REPORT RECIEVED. PT SITTING SEMI FOLWERS IN BED. RR EVEN AND UNLABORED ON 4L. PT HAS A L AC PIV INFUSING BUMEX @ 2.5. BED LOCKED AND IN LOWEST POSITION, CALL LIGHT WITHIN REACH. WILL CTM
[2019-11-16 09:00] VITALS: BP 118/58
[2019-11-16 12:00] VITALS: BP 123/65
[2019-11-16 13:58] VITALS: Ht 172.7 cm; Wt 57.4 kg
--- NOTE | 2019-11-16 16:43 | NUR ---
I have reviewed this patient and I concur with the Shift Assessment completed by the Licensed Practical Nurse today this shift.
--- NOTE | 2019-11-16 19:21 | NUR ---
RECEIVED BEDSIDE REPORT. ROUNDING COMPLETE. PATIENT IS ALERT AND ORIENTED, RESTING COMFORTABLY IN BED. RESPIRATIONS ARE EVEN AND UNLABORED. NO S/S OF DISTRESS. NO C/O PAIN. CALL LIGHT WITHIN REACH. WILL CPOC.
[2019-11-16 20:00] VITALS: BP 125/59
[2019-11-17] VITALS: BP 126/64
[2019-11-17 04:00] VITALS: BP 138/71
[2019-11-17 06:06] LABS: BASOPHILS 0.2 % (0-2); EOSINOPHILS 1.3 % (0-7); HEMATOCRIT 31.8 % (42.0-54.0); HEMOGLOBIN 10.2 g/dL (13.5-17.5); IMMATURE GRANULOCYTES 0.2 % (0-5); LYMPHOCYTES 10.9 % (15-50); MCH 26.5 pg (26.0-34.0); MCHC 32.1 g/dL (31.0-37.0); MCV 82.6 fL (80.0-100.0); MEAN PLATELET VOLUME 9.2 fL (7.4-10.4); MONOCYTES 11.8 % (2-11); NEUTROPHILS 75.6 % (40-80); PLATELET COUNT 349 10x3/uL (130-400); RBC 3.85 10x6/uL (4.20-6.10); RDW 19.3 % (11.5-14.5); WBC 10.5 10x3/uL (4.8-10.8)
[2019-11-17 07:11] LABS: ANION GAP 12.4 mmol/L (8-16); CARBON DIOXIDE 29.4 mmol/L (21.0-32.0); CREATININE - SERUM 1.3 mg/dL (0.6-1.3)
[2019-11-17 07:14] LABS: POTASSIUM - SERUM 2.8 mmol/L (3.5-5.1)
[2019-11-17 08:10] VITALS: BP 164/69
--- NOTE | 2019-11-17 10:47 | EC ---
PATIENT:MINOO ORTIZ DATE OF SERVICE: 11/15/19 SEX: M MEDICAL RECORD: [id number] DATE OF : [birth year] LOCATION:D.M2 D.210 AGE OF PATIENT: 73 ADMISSION DATE: 11/15/19 REFERRING PHYSICIAN: INTERPRETING PHYSICIAN: JAYA JACKSON MD ECHOCARDIOGRAM REPORT ECHO CHARGES 4 ECHO COMPLETE Date: 11/16/19 CLINICAL DIAGNOSIS: CHF ECHOCARDIOGRAPHIC MEASUREMENTS (adult normal given) AC root (d.<3.7cm) 0 cm LV Septum d (<1.2 cm> 0 cm Valve Excursion 0 cm LV Septum (systole) 0 cm Left Atria (s.<4.0cm> 0 cm LVPW d(<1.2cm) 0 cm RV (d.<2.3cm) 0 cm LVPW (sytole) 0 cm LV diastole(<5.6CM) 0 cm MV E-F(>70mm/sec) 0 cm LV systole 0 cm LVOT Diameter 0 cm MV exc.(>10mm) 0 cm Est.ejection fraction (50-75%) 0 % DOPPLER: LVIT cm/sec A 0 cm/sec E 0 cm/sec LA 0 cm/sec RVSP 34 mmHg LVOT 0 cm/sec AOP1/2T m/s Asc. Ao 0 cm/sec RVOT 0 cm/sec RA 0 cm/sec PA 0 cm/sec AV Gradient Peak 0 mmHg AV Mean 0 mmHg AV Area 0 cm MV Gradient Peak 0 mmHg MV Mean 0 mmHg MV Area 0 cm COMMENTS: 0 Backbreaker: 5 [facility] Manager Building: 3 Dr. Rand TAPE# PACS Pericardial Effusion Y DATE OF SERVICE: Adequate 2D, color flow imaging, spectral Doppler, and M-mode. LVH is present. LV internal dimensions are normal. LV is mildly globally hypo with EF lower limits of normal, mildly reduced at 45% to 50%. Aortic valve sclerosis without stenosis on Doppler interrogation. Left atrium grossly appears normal. Mitral valve shows no prolapse. Mild MR. Right-sided chambers are grossly normal. Trace TR. TRANSINT:[id number] Voice Confirmation ID: [id number] DOCUMENT ID: [id number] ECHOCARDIOGRAM REPORT [id number] MINOO ORTIZ JAYA JACKSON MD at 9626 CC: [id number] DICTATION DATE: 11/16/19 1845 MILITARY PILOT: 11/16/19 2345 ADM IN [place] [address] [place] [address]
[2019-11-17 11:44] VITALS: BP 164/69
[2019-11-17 15:36] LABS: ANION GAP 8.1 mmol/L (8-16); CALCIUM 7.9 mg/dL (8.5-10.1); CREATININE - SERUM 1.5 mg/dL (0.6-1.3); POTASSIUM - SERUM 3.1 mmol/L (3.5-5.1)
[2019-11-17 15:58] VITALS: BP 117/58
[2019-11-17 20:21] VITALS: BP 125/65
[2019-11-18] VITALS: BP 126/70
[2019-11-18 04:42] VITALS: BP 135/73
[2019-11-18 05:46] LABS: BASOPHILS 0.4 % (0-2); EOSINOPHILS 2.8 % (0-7); HEMATOCRIT 34.1 % (42.0-54.0); IMMATURE GRANULOCYTES 0.1 % (0-5); LYMPHOCYTES 14.4 % (15-50); MCH 26.6 pg (26.0-34.0); MCHC 32.3 g/dL (31.0-37.0); MCV 82.6 fL (80.0-100.0); MONOCYTES 13.1 % (2-11); NEUTROPHILS 69.2 % (40-80); PLATELET COUNT 340 10x3/uL (130-400); RBC 4.13 10x6/uL (4.20-6.10); RDW 19.1 % (11.5-14.5); WBC 8.1 10x3/uL (4.8-10.8)
[2019-11-18 06:29] LABS: ANION GAP 10.3 mmol/L (8-16); CALCIUM 8.4 mg/dL (8.5-10.1); CARBON DIOXIDE 31.1 mmol/L (21.0-32.0); CREATININE - SERUM 1.4 mg/dL (0.6-1.3); POTASSIUM - SERUM 3.4 mmol/L (3.5-5.1)
[2019-11-18 06:38] LABS: TROPONIN-I 2.297 ng/mL (0.000-0.060)
[2019-11-18 09:52] VITALS: BP 144/74
[2019-11-18] MEDS ORDERED: ALDACTONE25 MG PO (12:55)
[2019-11-18] MEDS ORDERED: COREG12.5 MG PO (12:56)
[2019-11-18] MEDS ORDERED: FUROSEMIDE20 MG PO (13:02)
[2019-11-18] MEDS ORDERED: K-DUR20 MEQ PO (13:03)
--- NOTE | 2019-11-18 13:24 | NUR ---
Nutrition Follow-up: Eating well overall. Ate ~80% of breakfast this AM. Noted plans to d/c today. Diet: Cardiac PO intake: 76% avg x 7 meals Wt: 126.2# (11/17) Labs noted: K+ 3.4, Ca 8.4 Meds noted: Lasix, KDur, Protonix, electrolyte protocol -RD following.
[2019-11-18 14:28] VITALS: BP 105/60
--- NOTE | 2019-11-18 15:07 | NUR ---
SALINE LOCK REMOVED, DISCHARGE PAPERS DISCUSSED WITH AND PATIENT, TO CAR VIA WHEELCHAIR.
--- NOTE | 2019-11-18 17:23 | MORECARE ---
CASE MANAGEMENT DISCHARGE SUMMARY PATIENT: MINOO CLANCY UNIT: [id number] ADM DATE: 11/15/19 AGE: 73 : 47 SEX: M ROOM/BED: D.210 AUTHOR: ROBI KNUTSON PHYSICIAN: REFERRING PHYSICIAN: NAHOMI HO MD DATE OF SERVICE: 11/18/19 Discharge Plan Patient Name: MINOO CLANCY [facility] [facility] 1945 Planned Disposition: Home Anticipated Discharge Date: 11/18/19 Discharge Date: 11/18/2019 Expected LOS: 3 Initial Reviewer: [id number] Initial Review Date: 11/15/2019 Generated: 11/18/19 6:22 pm Comments DCP- Discharge Planning Updated by [email or web address]: Ольга Aponte on 11/18/19 4:[address] CM met with patient regarding DC plans/needs. Patient is in agreement to same. PCP: Dr. Ho. Pharmacy: [facility]. DME: None. Emergency contact: Haleigh Clancy () [phone]. Patient denies the need for HHS, SNF, Rehab. Patient is in agreement to Nebulizer. KEVEN signed and order faxed for delivery to home. Patient voices no other needs at this time. Patient Name: MINOO CLANCY Page [phone] at 1723 All edits/amendments must be made on the electronic document DICTATION DATE: 11/18/191721 CLINICAL ENGINEERING MANAGER: KELSEY 11/18/191721 RPT#: [id number] DC DATE:11/18/19 STATUS: DIS IN [facility] [address] [facility] [place] [address] END OF REPORT
--- NOTE | 2019-11-18 17:29 | MORECARE ---
CASE MANAGEMENT DISCHARGE SUMMARY PATIENT: MINOO CLANCY UNIT: [id number] ADM DATE: 11/15/19 AGE: 73 : 47 SEX: M ROOM/BED: D.2104 AUTHOR: ROBI KNUTSON PHYSICIAN: REFERRING PHYSICIAN: NAHOMI HO MD DATE OF SERVICE: 11/18/19 Discharge Plan Patient Name: MINOO CLANCY [facility] [facility] 1945 Planned Disposition: Home Anticipated Discharge Date: 11/18/19 Discharge Date: 11/18/2019 Expected LOS: 3 Initial Reviewer: [email or web address] Initial Review Date: 11/15/2019 Generated: 11/18/19 6:29 pm Comments DCP- Discharge Planning Updated by [email or web address]: Ольга Aponte on 11/18/19 4:[address] CM met with patient regarding DC plans/needs. Patient is in agreement to same. PCP: Dr. Ho. Pharmacy: [facility] by [employer] [facility]. DME: None. Emergency contact: Haleigh Clancy () [phone]. Patient denies the need for HHS, SNF, Rehab. Patient is in agreement to Nebulizer. KEVEN signed and order faxed for delivery to home. Patient voices no other needs at this time. External Providers External Provider: Dov Next Contact Date: Service Request Date: Service Type: Resolution: Reviewer: Comments: Last DP export: 11/18/19 4:23 p Patient Name: MINOO CLANCY Page [phone] at 1729 All edits/amendments must be made on the electronic document DICTATION DATE: 11/18/191728 REGISTERED NURSE POST PARTUM: KELSEY 11/18/191728 RPT#: [id number] DC DATE:11/18/19 STATUS: DIS IN [facility] [address] [place] [address] END OF REPORT
--- NOTE | 2019-11-18 17:36 | MORECARE ---
CASE MANAGEMENT DISCHARGE SUMMARY PATIENT: MINOO CLANCY UNIT: [id number] ADM DATE: 11/15/19 AGE: 73 : 47 SEX: M ROOM/BED: D.2106 AUTHOR: ROBI KNUTSON PHYSICIAN: REFERRING PHYSICIAN: NAHOMI HO MD DATE OF SERVICE: 11/18/19 Discharge Plan Patient Name: MINOO CLANCY [facility] [facility] 1945 Planned Disposition: Home Anticipated Discharge Date: 11/18/19 Discharge Date: 11/18/2019 Expected LOS: 3 Initial Reviewer: [email or web address] Initial Review Date: 11/15/2019 Generated: 11/18/19 6:36 pm Comments DCP- Discharge Planning Updated by [email or web address]: Ольга Aponte on 11/18/19 4:[address] CM met with patient regarding DC plans/needs. Patient is in agreement to same. PCP: Dr. Ho. [facility]. DME: None. Emergency contact: Haleigh Clancy () [phone]. Patient denies the need for HHS, SNF, Rehab. Patient is in agreement to Nebulizer. KEVEN signed and order faxed for delivery to home. Patient voices no other needs at this time. 1730: faxed order for Nebulizer to Ronald with [employer] and called the Duo-nebs prescription to Keith at [facility] #[phone]. Last DP export: 11/18/19 4:29 p Patient Name: MINOO CLANYC Page [phone] at 1736 All edits/amendments must be made on the electronic document DICTATION DATE: 11/18/191735 RADIOGRAPHER MAMMOGRAPHER: KELSEY 11/18/191735 RPT#: [id number] DC DATE:11/18/19 STATUS: DIS IN [facility] [address] [place] [address] END OF REPORT
== END 2019-11-18 15:08 | disposition home or self-care (01) | DRG 291 ==
LOC: D.ER 06:03 → D.EDHOLD 08:02 → D.M2 08:02
PROVIDERS: Emergency Medicine; Family Medicine; ADMIT Family Medicine; ATTEND Family Medicine
PROC: 5A09357 Assistance with Respiratory Ventilation, Less than 24 Consecutive Hours, Continuous Positive Airway Pressure (ICD-10-PCS; principal; 2019-11-15)
DX: I11.0 Hypertensive heart disease with heart failure (principal); J96.01 Acute respiratory failure with hypoxia; I50.31 Acute diastolic (congestive) heart failure; J44.0 Chronic obstructive pulmonary disease with (acute) lower respiratory infection; E78.5 Hyperlipidemia, unspecified; I16.0 Hypertensive urgency; R00.0 Tachycardia, unspecified; I25.10 Atherosclerotic heart disease of native coronary artery without angina pectoris; I73.9 Peripheral vascular disease, unspecified; I08.2 Rheumatic disorders of both aortic and tricuspid valves; D64.9 Anemia, unspecified; Z95.0 Presence of cardiac pacemaker; G89.29 Other chronic pain; M54.9 Dorsalgia, unspecified; E87.6 Hypokalemia

== ENCOUNTER → 2020-05-01 10:56 | Outpatient (CLI) | payer MEDICARE, OTHER ==
[2019-11-16 13:58] VITALS: BMI 20.9
[~2020-05-01 10:56] MED LIST changes: +ALDACTONE25 MG PO; +COREG12.5 MG PO; +FUROSEMIDE20 MG PO
--- NOTE | 2020-05-02 16:13 | EC ---
PATIENT:MINOO ORTIZ DATE OF SERVICE: 05/01/20 SEX: M MEDICAL RECORD: [id number] DATE OF : [birth year] LOCATION:D.[facility] AGE OF PATIENT: 74 ADMISSION DATE: 05/01/20 REFERRING PHYSICIAN: INTERPRETING PHYSICIAN: JAYA JACKSON MD ECHOCARDIOGRAM REPORT ECHO CHARGES 4 ECHO COMPLETE Date: 05/01/20 CLINICAL DIAGNOSIS: HTN/ PACEMAKER/PVD ASSESS EF AND VALVES ECHOCARDIOGRAPHIC MEASUREMENTS (adult normal given) AC root (d.<3.7cm) 3.4 cm LV Septum d (<1.2 cm> 1.4 cm Valve Excursion 1.5 cm LV Septum (systole) 1.8 cm Left Atria (s.<4.0cm> 5.2 cm LVPW d(<1.2cm) 1.5 cm RV (d.<2.3cm) 3.8 cm LVPW (sytole) 1.8 cm LV diastole(<5.6CM) 6.4 cm MV E-F(>70mm/sec) cm LV systole 4.2 cm LVOT Diameter 1.7 cm MV exc.(>10mm) 2.0 cm Est.ejection fraction (50-75%) % DOPPLER: LVIT cm/sec A 122.0cm/sec E 61.0 cm/sec LA cm/sec RVSP 32 mmHg LVOT 105 cm/sec AOP1/2T m/s Asc. Ao 175 cm/sec RVOT 85 cm/sec RA cm/sec PA 155 cm/sec AV Gradient Peak 12.22mmHg AV Mean 5.90 mmHg AV Area 1.5 cm MV Gradient Peak 10.05mmHg MV Mean 3.03 mmHg MV Area cm COMMENTS: Broomcorn Sorter: 2 ALICIA CHAVES Market Developer: 3 Dr. Rand TAPE# PACS Pericardial Effusion N DATE OF SERVICE: Adequate 2D, color flow imaging, spectral Doppler, and M-Mode. FINDINGS: LVH is present. LV internal dimension is normal. Wall motion is normal. EF is greater than or equal to 55%. Aortic valve is sclerotic. No evidence of stenosis by Doppler interrogation. Left atrium is dilated. Mitral valve shows no prolapse. Mild MR. Right side is grossly normal. Trace TR. Incidental note was made of a pacemaker lead in the RV apex. ECHOCARDIOGRAM REPORT [id number] MINOO ORTIZ TRANSINT:[id number] Voice Confirmation ID: [id number] DOCUMENT ID: [id number] JAYA JACKSON MD at 1613 CC: [id number] DICTATION DATE: 05/01/20 1435 CORPORATE SALES TRAINER: 05/01/20 1812 DEP CLI 05/01/20 [place] [id number] [place] [id number]
== END | disposition home or self-care (01) ==
LOC: D.HCCECHO 10:56
PROVIDERS: ATTEND Internal Medicine Interventional Cardiology
DX: I10 Essential (primary) hypertension (principal)